=== PATIENT | female | born 1960 | race Caucasian/White ===

== ENCOUNTER 2016-10-19 00:25 | Emergency (ER) | payer OTHER, BC ==
[~2016-10-19] VITALS: Ht 165.1 cm; Wt 108.6 kg
[~2016-10-19 00:25] MED LIST: ALPR0.25 PO
[2016-10-19] MEDS ORDERED: HYDROcodone/APAP 5/325 TABLET ONE (01:24)
[2016-10-19] MEDS ORDERED: DIAZEPAM 5 MG TABLET ONE (01:24)
[2016-10-19] MEDS ORDERED: KETOROLAC 30 MG/1 ML ONE (01:24)
[2016-10-19] MEDS ORDERED: KETOROLAC 30 MG/1 ML IM ONE (01:30)
[2016-10-19] MEDS ORDERED: DIAZEPAM 5 MG TABLET PO ONE (01:30)
[2016-10-19] MEDS ORDERED: HYDROcodone/APAP 5/325 TABLET PO ONE (01:30)
[2016-10-19 03:07] VITALS: BP 134/78
== END 2016-10-19 03:10 | disposition home or self-care (01) ==
LOC: ED 03:00
DX: M75.32 Calcific tendinitis of left shoulder (principal); M25.521 Pain in right elbow; M25.531 Pain in right wrist; F17.200 Nicotine dependence, unspecified, uncomplicated; C25.9 Malignant neoplasm of pancreas, unspecified; Z88.0 Allergy status to penicillin; W00.0XXA Fall on same level due to ice and snow, initial encounter; Y93.01 Activity, walking, marching and hiking; Y99.8 Other external cause status; Y92.89 Other specified places as the place of occurrence of the external cause
CPT/HCPCS: 71010; 73030; 96372; 99284; J1885

== ENCOUNTER 2017-03-04 08:03 | Day surgery (SDC) | payer OTHER, BC ==
[2017-03-03 15:28] LABS: BLOOD UREA NITROGEN 9 mg/dL (7-18)
[2017-03-03 15:31] LABS: ASPARTATE AMINO TRANSFERASE 19 U/L (15-37)
[~2017-03-04] VITALS: Ht 165.1 cm; Wt 108.1 kg
[~2017-03-04 08:03] MED LIST changes: +BACITRACIN 50,000 UNIT ONE; +BUPIVACAINE/PF-EPI 0.5% 1:200K ONE; +GABA-826 PO; +LIDOCAINE/PF 1%, 30ML ONE
[2017-03-04 08:36] VITALS: BP 115/76
[2017-03-04] MEDS ORDERED: LACTATED RINGERS 1,000 ML IV SCH (08:40)
[2017-03-04] MEDS ORDERED: MIDAZOLAM 1 MG/ML, 2ML ONE (09:45)
[2017-03-04] MEDS ORDERED: FENTANYL PF 250 MCG/5ML ONE (09:45)
[2017-03-04] MEDS ORDERED: ROCURONIUM 10 MG/ML ONE (10:42)
[2017-03-04] MEDS ORDERED: KETOROLAC 30 MG/1 ML ONE (10:42)
[2017-03-04] MEDS ORDERED: DEXAMETHASONE 4 MG/ML, 1ML ONE (10:42)
[2017-03-04] MEDS ORDERED: PROPOFOL 10 MG/ML, 20ML ONE (10:42)
[2017-03-04] MEDS ORDERED: NEOSTIGMINE 1 MG/ML, 10ML ONE (10:42)
[2017-03-04] MEDS ORDERED: ONDANSETRON 2MG/ML, 2ML ONE (10:42)
[2017-03-04] MEDS ORDERED: GLYCOPYRROLATE 0.2MG/1ML ONE (10:42)
[2017-03-04] MEDS ORDERED: CEFAZOLIN 1,000 MG ONE (10:42)
[2017-03-04] MEDS ORDERED: HYDROmorphone 1 MG/ML, 1ML IV PRN (11:30)
[2017-03-04] MEDS ORDERED: MEPERIDINE/PF 25MG/0.5ML IVPush PRN (11:30)
[2017-03-04] MEDS ORDERED: hydrALAzine 20 MG/ML, 1ML IV PRN (11:30)
[2017-03-04] MEDS ORDERED: PROMETHAZINE 25 MG/ML, 1ML IV PRN (11:30)
[2017-03-04] MEDS ORDERED: METOPROLOL 1 MG/ML, 5ML IV PRN (11:30)
[2017-03-04] MEDS ORDERED: ALBUTEROL/IPRATROPIUM 2.5MG/0.5MG, 3 ML NPPB PRN (11:30)
[2017-03-04] MEDS ORDERED: FENTANYL PF 100 MCG/2ML IV PRN (11:30)
[2017-03-04] MEDS ORDERED: ACETAMINOPHEN 325 MG TABLET PO PRN (11:30)
[2017-03-04] MEDS ORDERED: OXYcodone 5 MG/5 ML ORAL.SOL UDC PO PRN (11:30)
[2017-03-04] MEDS ORDERED: MIDAZOLAM 1 MG/ML, 2ML IV PRN (11:30)
[2017-03-04] MEDS ORDERED: ACETAMINOPHEN 650 MG/20.3 ML UDC ONE (11:56)
[2017-03-04] MEDS ORDERED: OXYcodone 5 MG/5 ML ORAL.SOL UDC ONE (11:56)
== END 2017-03-04 16:00 ==
LOC: OUT 08:03
PROVIDERS: ATTEND Surgery
DX: K43.0 Incisional hernia with obstruction, without gangrene (principal); J44.9 Chronic obstructive pulmonary disease, unspecified; F17.210 Nicotine dependence, cigarettes, uncomplicated; E66.9 Obesity, unspecified; Z85.07 Personal history of malignant neoplasm of pancreas; Z68.39 Body mass index [BMI] 39.0-39.9, adult; Z88.0 Allergy status to penicillin; Z88.8 Allergy status to other drugs, medicaments and biological substances; Z90.710 Acquired absence of both cervix and uterus; Z98.890 Other specified postprocedural states; Z87.19 Personal history of other diseases of the digestive system
CPT/HCPCS: 36415; 49561; 80053; 85025; 85610; 88304; 93005; J0690; J1100; J1885; J2250; J2405; J2704; J2710; J3010; J3490; J7120

== ENCOUNTER → 2017-04-14 | Outpatient (CLI) | payer OTHER, BC ==
[~2017-04-14] MED LIST changes: -BACITRACIN 50,000 UNIT ONE; -BUPIVACAINE/PF-EPI 0.5% 1:200K ONE; -LIDOCAINE/PF 1%, 30ML ONE
== END | disposition home or self-care (01) ==
LOC: RAD 17:27
PROVIDERS: ATTEND Surgery
DX: K43.2 Incisional hernia without obstruction or gangrene (principal); K76.0 Fatty (change of) liver, not elsewhere classified; K86.89 Other specified diseases of pancreas; Z90.81 Acquired absence of spleen
CPT/HCPCS: 74160

== ENCOUNTER 2017-04-21 12:53 | Inpatient (IN) | payer OTHER, BC ==
[~2017-04-21] VITALS: Ht 165.1 cm; Wt 113.8 kg
[2017-04-21] MEDS ORDERED: ASPIRIN 81 MG TABLET CHEW PO ONE (13:30)
[2017-04-21] MEDS ORDERED: SODIUM CHLORIDE FLUSH 10ML SYR IVF ONE (13:30)
[2017-04-21 13:35] LABS: HEMATOCRIT 49.3 % (34.6-47.8); HEMOGLOBIN 16.6 g/dL (11.7-16.4); WHITE BLOOD COUNT 13.8 x10^3/uL (3.4-10)
[2017-04-21 13:45] LABS: ASPARTATE AMINO TRANSFERASE 19 U/L (15-37); BLOOD UREA NITROGEN 12 mg/dL (7-18)
[2017-04-21 13:50] LABS: IS PT STATUS REG ER OR PRE ER? YES
[2017-04-21] MEDS ORDERED: OMNIPAQUE 350 MG/ML, 100ML BOTTLE ONE (16:41)
[2017-04-21 18:26] VITALS: BP 120/67
[2017-04-21 19:13] VITALS: BP 123/64
[2017-04-21] MEDS ORDERED: POLYETHYLENE GLYCOL 17 GM PACKET PO PRN (22:00)
[2017-04-21] MEDS ORDERED: ONDANSETRON 2MG/ML, 2ML IVPush PRN (22:00)
[2017-04-21] MEDS ORDERED: BISACODYL 10 MG SUPP PR PRN (22:00)
[2017-04-21] MEDS ORDERED: ACETAMINOPHEN 325 MG TABLET PO PRN (22:00)
[2017-04-21] MEDS ORDERED: morphine SULFATE 10 MG/ML, 1ML IVPush PRN (22:00)
[2017-04-21] MEDS ORDERED: DOCUSATE 100 MG CAPSULE PO PRN (22:00)
[2017-04-21] MEDS ORDERED: ALBUTEROL SULFATE 2.5 MG/3 ML NPPB PRN (23:30)
[2017-04-22] MEDS: D5%-0.45NACL+KCL 20MEQ 1,000 ML IV SCH ×3 (00:06→22:27)
[2017-04-22 00:37] VITALS: BP 122/77
[2017-04-22 08:04] VITALS: BP 122/70
[2017-04-22 08:31] LABS: IS PT STATUS REG ER OR PRE ER? NO
[2017-04-22] MEDS ORDERED: REGADENOSON 0.4 MG/5 ML SYRINGE ONE (08:53)
[2017-04-22] MEDS ORDERED: ONDANSETRON 2MG/ML, 2ML ONE (12:26)
[2017-04-22] MEDS ORDERED: PROPOFOL 10 MG/ML, 20ML ONE (12:26)
[2017-04-22] MEDS ORDERED: CEFOTETAN 2 GM ONE (12:26)
[2017-04-22] MEDS ORDERED: OXYcodone 5 MG/5 ML ORAL.SOL UDC PO PRN (12:30)
[2017-04-22] MEDS ORDERED: ACETAMINOPHEN 325 MG TABLET PO PRN (12:30)
[2017-04-22] MEDS ORDERED: HYDROcodone/APAP 7.5-325MG/15ML UDC PO PRN (12:30)
[2017-04-22] MEDS ORDERED: ONDANSETRON 2MG/ML, 2ML IVPush PRN (12:30)
[2017-04-22] MEDS ORDERED: HYDROmorphone 1 MG/ML, 1ML IV PRN (12:30)
[2017-04-22] MEDS ORDERED: FENTANYL PF 100 MCG/2ML IV PRN (12:30)
[2017-04-22 13:57] VITALS: BP 141/79
[2017-04-22 14:46] VITALS: BP 120/75
[2017-04-22] MEDS ORDERED: CEFOTETAN PMX 2GM/50ML 50 ML IV ONE (15:00)
[2017-04-22 19:35] VITALS: BP 120/69
[2017-04-22] MEDS ORDERED: NICOTINE 21 MG/24 HR PATCH.TD24 TD ONE (20:00)
[2017-04-23 00:51] VITALS: BP 135/84
[2017-04-23] MEDS: D5%-0.45NACL+KCL 20MEQ 1,000 ML IV SCH ×2 (06:05→21:03)
[2017-04-23 06:14] LABS: HEMATOCRIT 43.3 % (34.6-47.8); HEMOGLOBIN 14.2 g/dL (11.7-16.4); WHITE BLOOD COUNT 11.1 x10^3/uL (3.4-10)
[2017-04-23 06:28] LABS: BLOOD UREA NITROGEN 15 mg/dL (7-18)
[2017-04-23] MEDS ORDERED: SUCCINYLCHOLINE 20 MG/ML, 10ML ONE (10:30)
[2017-04-23] MEDS ORDERED: DEXAMETHASONE 4 MG/ML, 1ML ONE (10:30)
[2017-04-23] MEDS ORDERED: PROPOFOL 10 MG/ML, 20ML ONE (10:30)
[2017-04-23] MEDS ORDERED: ONDANSETRON 2MG/ML, 2ML ONE (10:30)
[2017-04-23] MEDS ORDERED: GLYCOPYRROLATE 0.2MG/1ML, 5ML ONE (10:30)
[2017-04-23] MEDS ORDERED: NEOSTIGMINE 1 MG/ML, 10ML ONE (10:30)
[2017-04-23] MEDS ORDERED: ROCURONIUM 10 MG/ML ONE (10:30)
[2017-04-23] MEDS ORDERED: CEFAZOLIN 1,000 MG ONE (10:30)
[2017-04-23] MEDS ORDERED: ONDANSETRON 2MG/ML, 2ML IVPush PRN (11:30)
[2017-04-23] MEDS ORDERED: hydrALAzine 20 MG/ML, 1ML IV PRN (11:30)
[2017-04-23] MEDS ORDERED: OXYcodone 5 MG/5 ML ORAL.SOL UDC PO PRN (11:30)
[2017-04-23] MEDS ORDERED: LABETALOL 5MG/ML, 20ML IV PRN (11:30)
[2017-04-23] MEDS ORDERED: METOCLOPRAMIDE 5 MG/ML, 2ML IV PRN (11:30)
[2017-04-23] MEDS ORDERED: ACETAMINOPHEN 325 MG TABLET PO PRN (11:30)
[2017-04-23] MEDS ORDERED: ACETAMINOPHEN 650 MG/20.3 ML UDC ONE (12:53)
[2017-04-23] MEDS ORDERED: OXYcodone 5 MG/5 ML ORAL.SOL UDC ONE (12:53)
[2017-04-23] MEDS ORDERED: HYDROmorphone 1 MG/ML, 1ML ONE (12:53)
[2017-04-23] MEDS ORDERED: FENTANYL PF 100 MCG/2ML ONE ×2 (12:53→13:28)
[2017-04-23] MEDS: FENTANYL PF 100 MCG/2ML IV PRN ×3 (13:00→13:31)
[2017-04-23] MEDS: HYDROmorphone 1 MG/ML, 1ML IV PRN ×2 (13:02→13:19)
[2017-04-23 14:00] VITALS: BP 133/71
[2017-04-23 14:30] VITALS: BP 129/73
[2017-04-23] MEDS: CEFAZOLIN PMX 2GM/50ML 50 ML IV SCH (18:22)
[2017-04-23 19:15] VITALS: BP 120/77
[2017-04-23] MEDS: NICOTINE 7 MG/24 HR PATCH.TD24 TD SCH (21:04)
[2017-04-24] MEDS: CEFAZOLIN PMX 2GM/50ML 50 ML IV SCH ×2 (01:41→09:02)
[2017-04-24 02:41] VITALS: BP 124/71
[2017-04-24 04:57] LABS: HEMATOCRIT 43.4 % (34.6-47.8); HEMOGLOBIN 14.1 g/dL (11.7-16.4); WHITE BLOOD COUNT 16.4 x10^3/uL (3.4-10)
[2017-04-24 05:06] LABS: BLOOD UREA NITROGEN 7 mg/dL (7-18)
[2017-04-24] MEDS ORDERED: KETOROLAC 10MG TABLET PO PRN ×2 (08:00→08:30)
[2017-04-24 08:18] VITALS: BP 116/72
[2017-04-24] MEDS: BISACODYL 10 MG SUPP PR SCH ×2 (08:30→20:03)
[2017-04-24] MEDS: POLYETHYLENE GLYCOL 17 GM PACKET PO SCH (09:00)
[2017-04-24] MEDS: SODIUM CHLORIDE FLUSH 10ML SYR IVF SCH ×2 (09:03→20:52)
[2017-04-24] MEDS: OXYcodone/APAP 7.5/325MG TABLET PO PRN (09:11)
[2017-04-24 14:00] VITALS: BP 117/73
[2017-04-24 19:53] VITALS: BP 128/76
[2017-04-24] MEDS: NICOTINE 7 MG/24 HR PATCH.TD24 TD SCH (20:52)
[2017-04-25 02:33] VITALS: BP 121/74
[2017-04-25 06:27] LABS: BLOOD UREA NITROGEN 7 mg/dL (7-18)
[2017-04-25 06:49] LABS: HEMATOCRIT 41.9 % (34.6-47.8); HEMOGLOBIN 14.1 g/dL (11.7-16.4); WHITE BLOOD COUNT 16.6 x10^3/uL (3.4-10)
[2017-04-25 07:24] VITALS: BP 110/72
[2017-04-25 08:02] LABS: DIFF TOTAL CELLS COUNTED 100 CELL DIFF
[2017-04-25 08:04] LABS: VERIFY COUNTS? YES
[2017-04-25] MEDS: BISACODYL 10 MG SUPP PR SCH ×2 (08:30→20:27)
[2017-04-25] MEDS: SODIUM CHLORIDE FLUSH 10ML SYR IVF SCH ×2 (09:00→20:27)
[2017-04-25] MEDS: POLYETHYLENE GLYCOL 17 GM PACKET PO SCH (09:08)
[2017-04-25 14:25] VITALS: BP 117/70
[2017-04-25] MEDS ORDERED: ALBUTEROL SULFATE 2.5 MG/3 ML NPPB PRN (19:00)
[2017-04-25] MEDS ORDERED: DOCUSATE 100 MG CAPSULE PO PRN (19:00)
[2017-04-25] MEDS ORDERED: ONDANSETRON 2MG/ML, 2ML IVPush PRN (19:00)
[2017-04-25] MEDS: NICOTINE 7 MG/24 HR PATCH.TD24 TD SCH (20:27)
[2017-04-25 20:31] VITALS: BP 132/82
[2017-04-26 02:02] VITALS: BP 135/80
[2017-04-26 05:35] LABS: HEMATOCRIT 40.2 % (34.6-47.8); HEMOGLOBIN 13.4 g/dL (11.7-16.4); WHITE BLOOD COUNT 15.7 x10^3/uL (3.4-10)
[2017-04-26 05:48] LABS: BLOOD UREA NITROGEN 7 mg/dL (7-18)
[2017-04-26 05:52] LABS: ASPARTATE AMINO TRANSFERASE 21 U/L (15-37)
[2017-04-26 07:41] VITALS: BP 112/66
[2017-04-26] MEDS: BISACODYL 10 MG SUPP PR SCH ×2 (08:30→20:52)
[2017-04-26] MEDS: SODIUM CHLORIDE FLUSH 10ML SYR IVF SCH ×2 (09:00→20:50)
[2017-04-26] MEDS: POLYETHYLENE GLYCOL 17 GM PACKET PO SCH (09:00)
[2017-04-26] MEDS: OXYcodone/APAP 7.5/325MG TABLET PO PRN (10:32)
[2017-04-26 12:43] VITALS: BP 115/71
[2017-04-26 20:00] VITALS: BP 135/76
[2017-04-26] MEDS: NICOTINE 7 MG/24 HR PATCH.TD24 TD SCH (20:51)
[2017-04-27] MEDS: OXYcodone/APAP 7.5/325MG TABLET PO PRN (01:55)
[2017-04-27 02:00] VITALS: BP 149/82
[2017-04-27 06:10] LABS: HEMATOCRIT 37.9 % (34.6-47.8); HEMOGLOBIN 12.7 g/dL (11.7-16.4); WHITE BLOOD COUNT 12.9 x10^3/uL (3.4-10)
[2017-04-27 06:28] LABS: BLOOD UREA NITROGEN 9 mg/dL (7-18)
[2017-04-27 06:48] VITALS: BP 111/68
[2017-04-27] MEDS: SODIUM CHLORIDE FLUSH 10ML SYR IVF SCH (08:39)
[2017-04-27] MEDS: BISACODYL 10 MG SUPP PR SCH (08:40)
[2017-04-27] MEDS: POLYETHYLENE GLYCOL 17 GM PACKET PO SCH (08:40)
[2017-04-27 12:44] VITALS: BP 119/74
== END 2017-04-27 15:56 | disposition home or self-care (01) | DRG 436 ==
LOC: ED 14:57 → EDIP 17:17 → 4EST 18:16
PROVIDERS: ADMIT Internal Medicine; ATTEND Internal Medicine
PROC: BF47ZZZ Ultrasonography of Pancreas (ICD-10-PCS; 2017-04-22)
PROC: 0F9G3ZX Drainage of Pancreas, Percutaneous Approach, Diagnostic (ICD-10-PCS; 2017-04-22)
PROC: 0DB98ZX Excision of Duodenum, Via Natural or Artificial Opening Endoscopic, Diagnostic (ICD-10-PCS; principal; 2017-04-22 12:30)
DX: C25.9 Malignant neoplasm of pancreas, unspecified (principal); K43.6 Other and unspecified ventral hernia with obstruction, without gangrene; Z99.81 Dependence on supplemental oxygen; K86.2 Cyst of pancreas; E87.1 Hypo-osmolality and hyponatremia; K22.2 Esophageal obstruction; D75.89 Other specified diseases of blood and blood-forming organs; J44.9 Chronic obstructive pulmonary disease, unspecified; K43.2 Incisional hernia without obstruction or gangrene; R10.9 Unspecified abdominal pain; E04.1 Nontoxic single thyroid nodule; E78.5 Hyperlipidemia, unspecified; R94.31 Abnormal electrocardiogram [ECG] [EKG]; M54.2 Cervicalgia; G89.29 Other chronic pain; F17.210 Nicotine dependence, cigarettes, uncomplicated; K44.9 Diaphragmatic hernia without obstruction or gangrene; Z85.07 Personal history of malignant neoplasm of pancreas; Z86.011 Personal history of benign neoplasm of the brain; Z88.0 Allergy status to penicillin; Z90.81 Acquired absence of spleen; Z90.710 Acquired absence of both cervix and uterus; Z90.49 Acquired absence of other specified parts of digestive tract; Z88.8 Allergy status to other drugs, medicaments and biological substances; R59.0 Localized enlarged lymph nodes; D13.2 Benign neoplasm of duodenum
CPT/HCPCS: 36415; 71020; 71275; 74020; 78452; 80048; 80053; 80061; 81003; 82150; 83690; 83735; 84100; 84484; 85025; 88104; 88112; 88173; 88305; 93005; 93017; 93306; 94640; 99285; J0171; J0690; J1100; J1170; J2250; J2270; J2405; J2704; J2710; J2785; J3010; J3490; Q9967; A9502; C1781; C9898; J0330; J3480; S0074

== ENCOUNTER → 2017-07-21 | Outpatient (CLI) | payer OTHER, BC ==
[~2017-07-21] MED LIST changes: +OMNIPAQUE 350 MG/ML, 100ML BOTTLE ONE
== END | disposition home or self-care (01) ==
LOC: CFH 11:51
PROVIDERS: ATTEND Surgery
DX: D3A.8 Other benign neuroendocrine tumors (principal); K76.0 Fatty (change of) liver, not elsewhere classified; K86.9 Disease of pancreas, unspecified
CPT/HCPCS: 74170; Q9967